=== PATIENT | female | born 2000 | race American Indian/Alaskan Native ===

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

== ENCOUNTER 2021-04-06 19:11 | Emergency (ER) | payer SELFPAY | END 2021-04-07 | disposition left against medical advice (07) | LOC: ED 19:11 | DX: M54.6 Pain in thoracic spine (principal); Z53.21 Procedure and treatment not carried out due to patient leaving prior to being seen by health care provider ==